=== PATIENT | female | born 1940 | race Caucasian/White ===

== ENCOUNTER 2021-04-18 15:42 | Emergency (ER) | payer BC ==
[~2021-04-18] VITALS: Ht 160 cm; Wt 102.1 kg
[~2021-04-18 15:42] MED LIST: AMOX-426 PO; HYDR25TA4 PO; OMEP40CA20 PO
[2021-04-18 15:58] VITALS: BP_SYST 168
[2021-04-18 18:07] VITALS: BP_SYST 152
== END 2021-04-18 18:07 | disposition home or self-care (01) ==
LOC: SED 15:42
DX: S00.03XA Contusion of scalp, initial encounter (principal); I10 Essential (primary) hypertension; K21.9 Gastro-esophageal reflux disease without esophagitis; I48.91 Unspecified atrial fibrillation; Z79.899 Other long term (current) drug therapy; W18.39XA Other fall on same level, initial encounter; Y93.89 Activity, other specified; Y92.89 Other specified places as the place of occurrence of the external cause; Y99.8 Other external cause status
CPT/HCPCS: 70450-TC; 76376; 99284